=== PATIENT | male | born 1940 | race Caucasian/White ===

== ENCOUNTER 2021-01-24 04:24 | Emergency (ER) | payer MEDICARE, OTHER ==
--- NOTE | 2021-01-24 04:58 | EDM.PDOC ---
ED HPI GENERAL MEDICAL PROBLEM - General Chief Complaint: CPR in Progress Stated Complaint: [facility] Time Seen by Provider: 01/24/21 04:24 Source of Information: Reports: EMS History Limitations: Reports: Physical Impairment - History of Present Illness INITIAL COMMENTS - FREE TEXT/NARRATIVE: A code blue was called for this patient. Mr. Azul is an 80-year-old gentleman who was brought to the ED with a report from EMS that his heard a noise and found him unresponsive. She called 911. The police arrived first, and started CPR. When EMS arrived, they found the patient to be in asystole. They placed a Nickolas airway and an IV. The patient received 4 mg of epinephrine and 1 mg of bicarbonate, along with IV fluid, prior to arrival to the ED. His most recent rhythm was PEA with an apparent sinus rhythm. Upon arrival to the ED, the patient was found to have a strong left femoral pulse. BP 110/90, HR 74. Because the patient was unresponsive, I elected to establish a dedicated airway. The Nickolas airway was therefore removed, and the patient intubated with an 8.0 ETT to 23 cm at the lip. The cords were visualized, and the tip of the ETT was seen passing through the cords. Positive CO2 colorimetric change. Good bilateral chest rise. Good air movement heard in the bilateral axillae. Following intubation, an NG tube was placed. - Related Data Allergies Allergy/AdvReac Type Severity Reaction Status Date / Time No Known Allergies Allergy Verified 09/16/20 08:43 Home Meds: Home Meds Aspirin 81 mg PO 09/16/20 [History] Propranolol [Inderal LA 24 Hr] 120 mg PO DAILY 09/16/20 [History] atorvaSTATin [Lipitor] 40 mg PO BEDTIME 09/16/20 [History] Past Medical History Cardiovascular History: Reports: High Cholesterol Neurological History: Reports: CVA (09/09/2020), Other (See Below) (Tremor) - Past Surgical History GI Surgical History: Reports: Hernia Repair/Other ED ROS GENERAL - Review of Systems Review Of Systems: Unable To Obtain Reason Not Obtained: Patient unresopnsive ED EXAM, CPR - Physical Exam Exam: See Below Limited By: Unresponsive General Appearance: Obtunded, Severe Distress Eye Exam: Bilateral Eye: Other (Pupils fixed, dilated. No EOM.) Ears: Normal External Exam Nose: Normal Inspection Throat/Mouth: Normal Inspection, Normal Lips Head: Atraumatic, Normocephalic Neck: N, S, NON, FUL Respiratory Chest: Other (BVM via Nickolas airway -> ETT) Cardiovascular: Normal Pulse, Regular Rate, Rhythm, No Edema, No Gallop, No JVD, No Murmur, No Rub GI/Abdominal Exam: Normal Bowel Sounds, Soft, No Organomegaly, No Distention, No Abnormal Bruit, No Mass, Pelvis Stable Extremities: Normal Inspection, Normal Range of Motion, No Pedal Edema Neurological: Unresponsive Skin Exam: Dry, Intact, No Rash ED CPR PROCEDURES - Endotracheal Intubation Time of Intubation: 04:37 ET Intubation Indication: Cardiac Arrest Preparation: Suction, Balloon Tested, BVM Set Up, Difficult Airway Equip Pre-Oxygenation: Assisted with BVM Placement: Orotracheal, Cuffed, Uncomplicated Placement Cords Visualized: Yes, Grade 1 ETT Size In mm: 8.0 Number of Attempts: 1 Confirmed By: CO2 Indicator, Bilateral Breath Sounds, Chest Xray Tube Secured By: By RT #1 Interpretation EKG Date: 01/24/21 Time: 04:31 Rhythm: NSR Rate (Beats/Min): 74 Bonaparte: Normal P-Wave: Present (1st degree AVB) QRS: Normal ST-T: Depressed (ST depression with T-wave inversions V2-V5, and T-wave inversions V6, II, aVF) QT: Prolonged (QTc 483 ms) Comparison: NA - No Prior EKG Course - Vital Signs Last Recorded V/S: Last Vital Signs Temp 35.6 C L 01/24/21 04:40 Pulse Resp BP Pulse Ox - Orders/Labs/Meds Labs: Laboratory Tests 01/24/21 01/24/21 01/24/21 Range/Units 04:35 04:35 04:35 WBC 6.25 (4.23-9.07) K/mm3 RBC 4.61 L (4.63-6.08) M/mm3 Hgb 13.5 L (13.7-17.5) gm/dl Hct 42.6 (40.1-51.0) % MCV 92.4 H (79.0-92.2) fl MCH 29.3 (25.7-32.2) pg MCHC 31.7 L (32.2-35.5) g/dl RDW Std Deviation 50.0 H (35.1-43.9) fL Plt Count 154 L (163-337) K/mm3 MPV 10.3 (9.4-12.3) fl Neutrophils % (Manual) 19 L (40-60) % Band Neutrophils % 0 (0-10) % Lymphocytes % (Manual) 76 H (20-40) % Atypical Lymphs % 0 % Monocytes % (Manual) 4 (2-10) % Eosinophils % (Manual) 1 (0.8-7.0) % Basophils % (Manual) 0 L (0.2-1.2) Platelet Estimate Adequate Anisocytosis 1+ slight Macrocytosis 1+ slight Ovalocytes 1+ slight RBC Morph Comment Not Reportable PT (9.7-12.0) SECONDS INR APTT (21.7-31.4) SECONDS D-Dimer, Quantitative (0.19-0.50) mg/L Sodium 141 (136-145) mEq/L Potassium 4.4 (3.5-5.1) mEq/L Chloride 104 (98-107) mEq/L Carbon Dioxide 24 (21-32) mEq/L Anion Gap 17.4 H (5-15) BUN 19 H (7-18) mg/dL Creatinine 1.6 H (0.7-1.3) mg/dL Est Cr Clr Drug Dosing TNP Estimated GFR (MDRD) 42 (>60) mL/min BUN/Creatinine Ratio 11.9 L (14-18) Glucose 276 H (70-99) mg/dL Lactic Acid 7.8 H* (0.4-2.0) mmol/L Calcium 8.2 L (8.5-10.1) mg/dL Magnesium 2.2 (1.8-2.4) mg/dL Total Bilirubin 0.3 (0.2-1.0) mg/dL AST 104 H (15-37) U/L ALT 108 H (16-63) U/L Alkaline Phosphatase 136 H (46-116) U/L Troponin I < 0.017 (0.00-0.056) ng/mL Total Protein 6.6 (6.4-8.2) g/dl Albumin 2.6 L (3.4-5.0) g/dl Globulin 4.0 gm/dL Albumin/Globulin Ratio 0.7 L (1-2) SARS-CoV-2 RNA (ANGELY) (NEGATIVE) 01/24/21 01/24/21 Range/Units 04:35 04:51 WBC (4.23-9.07) K/mm3 RBC (4.63-6.08) M/mm3 Hgb (13.7-17.5) gm/dl Hct (40.1-51.0) % MCV (79.0-92.2) fl MCH (25.7-32.2) pg MCHC (32.2-35.5) g/dl RDW Std Deviation (35.1-43.9) fL Plt Count (163-337) K/mm3 MPV (9.4-12.3) fl Neutrophils % (Manual) (40-60) % Band Neutrophils % (0-10) % Lymphocytes % (Manual) (20-40) % Atypical Lymphs % % Monocytes % (Manual) (2-10) % Eosinophils % (Manual) (0.8-7.0) % Basophils % (Manual) (0.2-1.2) Platelet Estimate Anisocytosis Macrocytosis Ovalocytes RBC Morph Comment PT 11.5 (9.7-12.0) SECONDS INR 1.08 APTT 34.7 H (21.7-31.4) SECONDS D-Dimer, Quantitative 29.11 H (0.19-0.50) mg/L Sodium (136-145) mEq/L Potassium (3.5-5.1) mEq/L Chloride (98-107) mEq/L Carbon Dioxide (21-32) mEq/L Anion Gap (5-15) BUN (7-18) mg/dL Creatinine (0.7-1.3) mg/dL Est Cr Clr Drug Dosing Estimated GFR (MDRD) (>60) mL/min BUN/Creatinine Ratio (14-18) Glucose (70-99) mg/dL Lactic Acid (0.4-2.0) mmol/L Calcium (8.5-10.1) mg/dL Magnesium (1.8-2.4) mg/dL Total Bilirubin (0.2-1.0) mg/dL AST (15-37) U/L ALT (16-63) U/L Alkaline Phosphatase (46-116) U/L Troponin I (0.00-0.056) ng/mL Total Protein (6.4-8.2) g/dl Albumin (3.4-5.0) g/dl Globulin gm/dL Albumin/Globulin Ratio (1-2) SARS-CoV-2 RNA (ANGELY) Negative (NEGATIVE) Meds: Medications Discontinued Medications Generic Name Dose Route Start Last Admin Trade Name Meeta PRN Reason Stop Dose Admin Furosemide Confirm 01/24/21 05:06 Furosemide 20 Mg/2 Ml Vial Administered 01/24/21 05:07 Dose 20 mg .ROUTE .STK-MED ONE Furosemide 20 mg 01/24/21 05:07 Furosemide 40 Mg/4 Ml Vial IVPUSH 01/24/21 05:08 NOW STA Amiodarone HCl/Dextrose Confirm 01/24/21 04:55 Nexterone In Dextrose 150 Mg/100 Ml Administered 01/24/21 04:56 Dose 100 mls @ as directed IV .STK-MED ONE Dopamine HCl/Dextrose Confirm 01/24/21 05:07 Dopamine In D5w 400 Mg/250 Ml Administered 01/24/21 05:08 Dose 400 mg in 250 mls @ as directed .ROUTE .STK-MED ONE - Re-Assessments/Exams Free Text/Narrative Re-Assessment/Exam: 01/24/21 04:49 I have ordered a work-up that includes numerous blood tests, an ABG, a swab for the SARS-CoV-2 virus, a portable chest x-ray, and an ECG. The ECG demonstrates a sinus rhythm with a 1st-degree AV block and ST depressions with T wave inversions V3V5, along with T wave inversions in V6, II, and aVF. The portable chest radiograph indicates the tip of the ET tube to be about 3 cm above the theresa. The OG tube is seen in the stomach via the esophagus. There are bilateral pulmonary infiltrates. I have ordered amiodarone 300 mg bolus. Because of the bilateral infiltrates, I will order 2 sets of blood cultures. 01/24/21 05:13 [facility] called at 04:52. Case discussed with Rosa at [facility] at 04:54. Case then discussed with Dr. Perez, Social Director at [facility], at 05:01. He recommended increasing the patient's PEEP, and treating with Lasix, to see if we can improve his oxygenation. I recommended starting a dopamine drip due to progressively worsening bradycardia, and he agreed. We were about to discussed the case with the [place] on-call, however, I was then notified that the family wanted to stop treatment. I discussed the situation with the patient's and some other family members. The patient's stated that the patient would not want to be intubated, and that he has been ready to "for a long time". We will therefore proceed with extubation. Will not give the Lasix or start the dopamine drip. The patient will not be transferred. 01/24/21 05:34 The patient became asystolic on the cardiac surgeon, but continued to have some agonal breathing. When this ceased, I was called. With family surrounding him at the bedside, the patient had no palpable pulse or heart tones on auscultation, no spontaneous respiratory effort, and no response to noxious stimuli. The patient was pronounced at 05:33. Departure - Departure Time of Disposition: 05:35 Disposition: 20 Preliminary Cause of *Q: Cardiac Arrest Clinical Impression: Cardiac arrest - Discharge Information *PRESCRIPTION DRUG MONITORING PROGRAM REVIEWED*: Not Applicable *COPY OF PRESCRIPTION DRUG MONITORING REPORT IN PATIENT GONZÁLEZ: Not Applicable Referrals: Colin Guerra MD [Primary Care Provider] - Forms: ED Department Discharge
[2021-01-24] MEDS ORDERED: Amiodarone In Dextrose,Iso-Osm 200 ML IV ONE (05:00)
[2021-01-24] MEDS ORDERED: Furosemide 20 MG/2 ML VIAL ONE (05:06)
[2021-01-24] MEDS ORDERED: Furosemide 40 MG/4 ML VIAL IVPUSH STA (05:07)
[2021-01-24] MEDS ORDERED: DOPamine/Dextrose 5%-Water 400 MG/250 ML BAG ONE (05:07)
--- NOTE | 2021-01-24 10:24 | CR ---
Chest: Frontal view of the chest was obtained. Comparison: No prior chest imaging is available. Heart size and mediastinum are normal. Endotracheal tube is seen lying slightly below the inferior clavicle. Nasogastric tube courses off the inferior edge of the film into the stomach. There are diffuse increased densities within both sides of the chest. Mild degenerative disc space narrowing is seen within the thoracic spine with scattered endplate osteophytes. Impression: 1. Satisfactory position of endotracheal tube. Nasogastric tube courses off the inferior edge of the film into the stomach. 2. Diffuse increased densities on both sides of the chest. Please correlate if this represent diffuse pulmonary vascular congestion or infectious pneumonias. Differential is otherwise more extensive. Diagnostic code #3 MTDD
== END 2021-01-24 07:20 | disposition expired ==
LOC: JD.ED 04:24
DX: I46.9 Cardiac arrest, cause unspecified (principal); E78.00 Pure hypercholesterolemia, unspecified; Z20.822 Contact with and (suspected) exposure to COVID-19; Z79.82 Long term (current) use of aspirin; Z79.899 Other long term (current) drug therapy
CPT/HCPCS: 31500; 36415; 80053; 83605; 83735; 84484; 85007; 85027; 85379; 85610; 85730; 87040; 99285; J0282; U0002; 43752; 92950; 93010